=== PATIENT | male | born 1950 | race Caucasian/White ===

== ENCOUNTER → 2016-12-01 | Outpatient (CLI) | payer MEDICARE, BC ==
[~2016-12-01] MED LIST: 3N1 COMMODE MC; ASPI-781 PO; ESCI10TA PO; HYDR-3605 PO; SIMV5TAB50 PO; TAMS0.4C2 PO; TRAM50TA2 PO; WALK1EAC23 MC
--- NOTE | 2016-12-01 11:47 | RADRPT ---
PROCEDURE: XR Hip. CLINICAL INDICATION: Pain. TECHNIQUE: AP and frog lateral views of the right hip were performed. COMPARISON: Right hip 12/17/2015. FINDINGS: The acetabular and femoral components of the right hip arthroplasty remain anatomically aligned with no evidence of loosening or of a fracture. No changes noted since the prior study. IMPRESSION: 1. Stable normal appearance of the total right hip arthroplasty when compared to 12/17/2015. RPTAT:AAJJ Physician Trell Date Time Electronically viewed and signed by Physician Trell on 12/01/2016 11:47 JM/
--- NOTE | 2016-12-01 11:57 | RADRPT ---
PROCEDURE: XR Pelvis. CLINICAL INDICATION: Hip pain TECHNIQUE: Single AP view performed. COMPARISON: 12/17/2015 FINDINGS: There is a right total hip replacement. There is no evidence of loosening of the prosthesis. No hard shine failure is identified. There is moderate to severe left hip osteoarthrosis. This is associated with joint space narrowing, subchondral sclerosis, subchondral cyst formation and osteophytosis. There is normal osseous minera lization. No fractures or osseous lesions are identified. The soft tissues are unremarkable. IMPRESSION: Right total hip replacement. Moderate to severe left hip osteoarthrosis. RPTAT: HGDB .Santiago Chadwick MD, MD Date Time Electronically viewed and signed by .Santiago Chadwick MD, on 12/01/2016 11:57 .B/
== END | disposition home or self-care (01) ==
LOC: HKI 11:02
PROVIDERS: ATTEND Orthopaedic Surgery
DX: M25.552 Pain in left hip (principal); M16.12 Unilateral primary osteoarthritis, left hip; M51.36 Other intervertebral disc degeneration, lumbar region; M54.16 Radiculopathy, lumbar region; Z96.641 Presence of right artificial hip joint
CPT/HCPCS: 72170; 73502; G0463